=== PATIENT | female | born 2000 | race Caucasian/White ===

== ENCOUNTER → 2025-10-05 | Outpatient (CLI) | payer BC, SELFPAY | END | disposition home or self-care (01) | LOC: LABSPEC 16:19 | PROVIDERS: PCP Pediatrics; Visit Provider Obstetrics & Gynecology | DX: Z12.4 Encounter for screening for malignant neoplasm of cervix (principal) | CPT/HCPCS: 88175; G0145 ==

== ENCOUNTER → 2025-10-25 | Outpatient (CLI) | payer BC, SELFPAY ==
--- NOTE | 2025-10-25 12:40 | US_ITS ---
PROCEDURE: PELVIC W/ TRANSVAGINAL 10/25/2025 REASON FOR EXAM: IUD PLACEMENT- STRINGS LOST TECHNIQUE: Procedure Code: [id number] Modality: US Procedure: PELVIC W/ TRANSVAGINAL COMPARISON: None FINDINGS: The uterus measures 8.8 cm x 5.4 cm x 3.4 cm and is retroverted. The endometrial stripe measures 4 mm. An IUD is present and unremarkable. The right ovary measures 4.1 cm x 1.8 cm x 2.9 cm. There is a 2.9 cm cystic structure present. The left ovary measures 3.7 cm x 2.1 cm x 1.3 cm. There is a small amount of free fluid in the cul-de-sac. US/Pelvic w/ Transvaginal IMPRESSION: The IUD is present. Likely benign functional cyst in the right ovary. Reading Location: [facility]
--- NOTE | 2025-10-25 13:17 | US_ITS ---
PROCEDURE: BREAST LIMITED UNILATERAL 10/25/2025 REASON FOR EXAM: F, Age 24 y/o , GALACTORRHEA discharge was initially a darkish/ black color than it was a milky yellowish discharge and now it is a bloody discharge. COMPARISON: Mammogram dated 10/25/2025. TECHNIQUE: Procedure Code: USBRSTLIMIT Modality: US Procedure: BREAST LIMITED UNILATERAL FINDINGS: There is a solid, hypoechoic, smoothly marginated, heterogeneous mass in the right breast retroareolar region at the 10 o'clock, 1 cm from the nipple position measuring 2.0 x 1.7 x 1.1 cm. This mass is wider than it is tall and does not produce any posterior shadowing. The mass does have blood flow. There is a solid, hypoechoic, heterogeneous, smoothly marginated mass at the 11 o'clock, 1 cm from the nipple position measuring 8 x 8 x 4 mm. This appears to be connected to a duct. This mass is wider than it is tall and does not produce any posterior shadowing. The mass does have blood flow. The masses may represent papillomas and do have primarily benign features based upon ultrasound criteria however, given the patient's history of nipple discharge that is now bloody, biopsy is warranted of the masses in order to completely exclude a malignancy. US/Breast Limited Unilateral IMPRESSION: The solid masses in the right breast should be biopsied in order to completely exclude a malignancy. BI-RADS 4: SUSPICIOUS RECOMMENDATION: Biopsy Recommended Reading Location: [id number]
[2025-10-28 06:07] LABS: PROLACTIN 13.3 ng/mL (4.8-33.4)
== END | disposition home or self-care (01) ==
PROVIDERS: PCP Student in an Organized Health Care Education/Training Program; Referring Provider Obstetrics & Gynecology; Visit Provider Obstetrics & Gynecology
DX: N64.3 Galactorrhea not associated with childbirth (principal); T83.32XA Displacement of intrauterine contraceptive device, initial encounter
CPT/HCPCS: 36415; 76642; 76830; 76856; 84146

== ENCOUNTER → 2025-11-01 | Outpatient (CLI) | payer BC, SELFPAY ==
--- NOTE | 2025-11-01 14:45 | BRBX_PTH ---
PATIENT: [facility]UM[facility]INS [facility] U[facility][id number] AGE/SX: 24/F ROOM: RE11/01/[address]: Dr. Clemente Ford MD : 2000 BED: DIS: 11/01/2025 SPEC #: [id number] RECD: 11/01/25 15:23 STATUS: ADELSO REQ #: [id number] CASS: 11/01/25 14:[address]: Clemente Ford DEPT: SURGICAL PATHOLOGY RECD BY: Colt Yeboah ENTERED: 11/02/25 09:40 SP TYPE: BREAST BX OTHR DR: Dr. Brett Fu DO Tissues: A - Right breast, NOS B - Right breast, NOS Procedures: Surgery Specimen Level IV HEADER OPERATION: Core needle biopsy of right breast x 2 PRE-OP DIAGNOSIS: Right breast TISSUE SUBMITTED: A- Right breast tissue - 10o'clock, B- Right breast tissue - 11o'clock MICROSCOPIC DIAGNOSIS A. Right breast, 10:00, needle biopsies: - Fibroadenoma with focal apocrine metaplasia, benign B. Right breast, 11:00: - Fibroadenoma with focal apocrine metaplasia with microcyst formation, benign MICROSCOPIC DESCRIPTION Slides are reviewed. GROSS DESCRIPTION Received in 2 formalin containers labeled with the patient's name and date of . Designated as: A. R breast tissue 10 o'clock is a 2.0 x 0.4 x 0.1 cm aggregate of lucia-yellow to red fragmented tissue cores. Entirely submitted in 1 cassette. B. R breast tissue 11 o'clock are 3 lucia-white, somewhat fibrotic tissue cores, 0.3 cm to 1.4 cm in length by 0.1 cm in diameter. Entirely submitted in 1 cassette. Cold ischemic time: <1 minuteFormalin fixation time: 28 hours, 45 minutes AL 11/02/2025 CPT:[id number]
== END | disposition home or self-care (01) ==
LOC: LABSPEC 15:32
PROVIDERS: PCP Student in an Organized Health Care Education/Training Program; Referring Provider Surgery; Visit Provider Surgery
DX: D24.1 Benign neoplasm of right breast (principal)
CPT/HCPCS: 88305